=== PATIENT | male | born 1990 | race Caucasian/White ===

== ENCOUNTER 2021-06-02 15:15 | Emergency (ER) | payer MEDICAID ==
[~2021-06-02] VITALS: Ht 165.1 cm; Wt 71.4 kg
[2021-06-02 15:20] VITALS: BP 132/43
== END 2021-06-02 17:42 | disposition home or self-care (01) ==
LOC: ER 15:16
DX: M54.9 Dorsalgia, unspecified (principal); G89.29 Other chronic pain; Z98.890 Other specified postprocedural states
CPT/HCPCS: 99281

== ENCOUNTER 2021-06-24 18:31 | Emergency (ER) | payer MEDICAID ==
[~2021-06-24] VITALS: Ht 165.1 cm; Wt 75.0 kg
[2021-06-24 18:34] VITALS: BP 136/85
[2021-06-24] MEDS ORDERED: CARB15DR82 TOP (22:31)
== END 2021-06-24 22:37 | disposition home or self-care (01) ==
LOC: ER 18:32
DX: H47.093 Other disorders of optic nerve, not elsewhere classified, bilateral (principal); H57.13 Ocular pain, bilateral; G89.29 Other chronic pain; Z98.890 Other specified postprocedural states; Z59.00 Homelessness unspecified; Z79.899 Other long term (current) drug therapy
CPT/HCPCS: 99283

== ENCOUNTER 2021-06-28 20:24 | Emergency (ER) | payer MEDICAID ==
[~2021-06-28] VITALS: Ht 165.1 cm; Wt 71.4 kg
[~2021-06-28 20:24] MED LIST: CARB15DR82 TOP
[2021-06-29] MEDS ORDERED: OLANZapine 2.5MG tablet PO STA (01:37)
--- NOTE | 2021-06-29 02:48 | NUR ---
ATTEMPTED TO MEDICATE PT PER DOCTOR'S RECOMMENDATION. PT, AFTER EXPLAINING THE MEDICATION, REFUSED THE MEDS SAYING THAT "I DON'T NEED THOSE, AND THE SIDE EFFECTS ARE TERRIBLE FOR YOUR BODY". NURSE ATTEMPTED TO EDUCATED AND ENCOURAGE PT TO TAKE THE MEDICATION. DOCTOR NOTIFIED.
[2021-06-29 02:56] LABS: ALANINE AMINOTRANSFERASE 21 U/L (12-78); ALBUMIN 3.9 G/DL (3.4-5.0); ALBUMIN/GLOBULIN RATIO 1.3 (1.1-1.5); ALKALINE PHOSPHATASE 53 IU/L (46-116); ANION GAP 9 (8-16); ASPARTATE AMINO TRANSFERASE 17 U/L (10-37); BILIRUBIN,TOTAL 0.3 MG/DL (0.1-1.0); BLOOD UREA NITROGEN 35 MG/DL (7-18); CALCIUM 8.9 MG/DL (8.5-10.1); CHLORIDE 102 MMOL/L (99-107); GLUCOSE 88 MG/DL (70-104); POTASSIUM 3.8 MMOL/L (3.5-5.1); SODIUM 137 MMOL/L (135-145); TOTAL CARBON DIOXIDE 25.6 MMOL/L (24-32); TOTAL PROTEIN 6.9 G/DL (6.4-8.2); eGFR 87 ML/MIN
[2021-06-29 04:38] LABS: BASOPHILS # (AUTO) 0.1 X10'3 (0-0.2); BASOPHILS % (AUTO) 1.1 % (0-1); EOSINOPHILS # (AUTO) 0.5 X10'3 (0-0.9); EOSINOPHILS % (AUTO) 8.6 % (0-6); HEMATOCRIT 40.6 % (42.0-52.0); HEMOGLOBIN 14.3 g/dl (14.0-17.9); LYMPHOCYTES # (AUTO) 2.2 X10'3 (1.1-4.8); LYMPHOCYTES % (AUTO) 38.1 % (21-51); MEAN CORPUSCULAR HEMOGLOBIN 29.5 PG (27.0-31.0); MEAN CORPUSCULAR HGB CONC 35.3 g/dL (33.0-36.5); MEAN CORPUSCULAR VOLUME 83.7 FL (78-98); MEAN PLATELET VOLUME 9.9 FL (7.4-10.4); MONOCYTES # (AUTO) 0.3 X10'3 (0-0.9); MONOCYTES % (AUTO) 5.7 % (2-12); NEUTROPHILS # (AUTO) 2.7 X10'3 (1.8-7.7); NEUTROPHILS % (AUTO) 46.5 % (42-75); PLATELET COUNT 221 X10'3 (140-440); RED BLOOD COUNT 4.85 X10'6 (4.70-6.10); RED CELL DISTRIBUTION WIDTH 13.2 % (11.5-14.5); WHITE BLOOD COUNT 5.8 X10'3 (4.5-11.0)
[2021-06-29 05:01] VITALS: BP 122/78
== END 2021-06-29 05:03 | disposition home or self-care (01) ==
LOC: ER 20:25
DX: Z13.89 Encounter for screening for other disorder (principal); R20.0 Anesthesia of skin; M25.471 Effusion, right ankle; G89.29 Other chronic pain; Z98.890 Other specified postprocedural states; Z59.00 Homelessness unspecified; Z79.899 Other long term (current) drug therapy
CPT/HCPCS: 36415; 80053; 85025; 99284